=== PATIENT | male | born 1980 | race Hispanic/Latino ===

== ENCOUNTER 2018-04-29 17:21 | Emergency (ER) | payer OTHER ==
[2018-04-29] MEDS ORDERED: DIAZEPAM 5 MG TABLET ONE (18:45)
[2018-04-29] MEDS ORDERED: ACETAMINOPHEN EXTRA STRENGTH 500 MG TABLET ONE (18:45)
== END 2018-04-29 20:44 | disposition home or self-care (01) ==
LOC: EDH 17:21
DX: G44.209 Tension-type headache, unspecified, not intractable (principal)